=== PATIENT | female | born 1995 | race Caucasian/White ===

== ENCOUNTER → 2018-07-08 | Outpatient (REF) | payer BC | LOC: M SFHCCAPE 12:03 | DX: R30.0 Dysuria (principal) | CPT/HCPCS: 87086 ==

== ENCOUNTER → 2018-10-09 | Outpatient (REF) | payer BC ==
[2018-10-09 17:37] LABS: ALBUMIN 3.9 GM/DL (3.2-5.2); ALBUMIN/GLOBULIN RATIO 1.15 (1.00-1.93); ALKALINE PHOSPHATASE 76 U/L (45-117); ALT/SGPT 21 U/L (12-78); ANION GAP 11 MEQ/L (8-16); AST/SGOT 11 U/L (7-37); BILIRUBIN,TOTAL 0.3 MG/DL (0.2-1.0); BLOOD UREA NITROGEN 10 MG/DL (7-18); CALCIUM LEVEL 8.7 MG/DL (8.5-10.1); CARBON DIOXIDE LEVEL 24 MEQ/L (21-32); CHLORIDE LEVEL 104 MEQ/L (98-107); CHOLESTEROL LEVEL 187 MG/DL (<200); CHOLESTEROL RISK RATIO 4.155 (<5); CREATININE FOR GFR 0.56 MG/DL (0.55-1.30); GLOMERULAR FILTRATION RATE > 60.0 (>60); GLUCOSE, FASTING 78 MG/DL (70-100); HDL CHOLESTEROL 45 MG/DL (>40); IRON (FE) 87 UG/DL (50-170); LDL CHOLESTEROL 100 MG/DL (<100); NON-HDL-C 142 MG/DL; POTASSIUM SERUM 4.1 MEQ/L (3.5-5.1); SODIUM LEVEL 139 MEQ/L (136-145); THYROXINE (T4) 8.7 UG/DL (4.5-12.0); TOTAL PROTEIN 7.3 GM/DL (6.4-8.2); TRIGLYCERIDES LEVEL 212 MG/DL (<150)
[2018-10-09 18:54] LABS: BASO # 0.1 10^3/uL (0.0-0.2); BASO % 0.8 % (0.0-1.0); EOS # 0.1 10^3/uL (0.0-0.50); EOS % 1.8 % (0.0-3.0); HEMATOCRIT 42.3 % (36.0-47.0); HEMOGLOBIN 14.7 g/dl (12.0-15.5); IMMATURE GRANULOCYTE % 0.3 % (0-3.0); LYMPH # 2.5 10^3/uL (1.5-6.5); LYMPH % 33.2 % (24.0-44.0); MEAN CORPUSCULAR HEMOGLOBIN 29.3 pg (27.0-33.0); MEAN CORPUSCULAR HGB CONC 34.8 g/dl (32.0-36.5); MEAN CORPUSCULAR VOLUME 84.3 fl (80.0-96.0); MONO # 0.5 10^3/uL (0.0-0.8); MONO % 7.3 % (0.0-5.0); NEUTROPHILS # 4.2 10^3/uL (1.8-7.7); NEUTROPHILS % 56.6 % (36.0-66.0); PLATELET COUNT, AUTOMATED 228 10^3/uL (150-450); RED BLOOD COUNT 5.02 10^6/uL (4.00-5.40); RED CELL DISTRIBUTION WIDTH 12.6 % (11.5-14.5); WHITE BLOOD COUNT 7.4 10^3/uL (4.0-10.0)
[2018-10-12 00:07] LABS: VITAMIN D 1,25 DIHYDROXY 59.5 pg/mL (19.9-79.3)
== END ==
LOC: M SFHCCAPE 07:13
DX: E78.1 Pure hyperglyceridemia (principal); R63.5 Abnormal weight gain; R53.83 Other fatigue; Z13.21 Encounter for screening for nutritional disorder
CPT/HCPCS: 83540

== ENCOUNTER → 2019-02-25 | Outpatient (REF) | payer BC ==
[2019-02-25 18:21] LABS: ALBUMIN 4.1 GM/DL (3.2-5.2); ALT/SGPT 33 U/L (12-78); BILIRUBIN,TOTAL 0.4 MG/DL (0.2-1.0); BLOOD UREA NITROGEN 9 MG/DL (7-18); CARBON DIOXIDE LEVEL 27 MEQ/L (21-32); CHLORIDE LEVEL 103 MEQ/L (98-107); GLOMERULAR FILTRATION RATE > 60.0 (>60); GLUCOSE, FASTING 85 MG/DL (70-100); POTASSIUM SERUM 4.3 MEQ/L (3.5-5.1); SODIUM LEVEL 137 MEQ/L (136-145); TOTAL PROTEIN 7.8 GM/DL (6.4-8.2)
[2019-02-25 18:22] LABS: BASO # 0.1 10^3/uL (0.0-0.2); BASO % 0.9 % (0.0-1.0); EOS # 0.1 10^3/uL (0.0-0.50); EOS % 1.2 % (0.0-3.0); HEMATOCRIT 44.5 % (36.0-47.0); LYMPH # 2.6 10^3/uL (1.5-6.5); LYMPH % 26.5 % (24.0-44.0); MEAN CORPUSCULAR HEMOGLOBIN 28.1 pg (27.0-33.0); MEAN CORPUSCULAR HGB CONC 33.7 g/dl (32.0-36.5); MEAN CORPUSCULAR VOLUME 83.3 fl (80.0-96.0); MONO # 0.6 10^3/uL (0.0-0.8); MONO % 6.4 % (0.0-5.0); NEUTROPHILS # 6.4 10^3/uL (1.8-7.7); NEUTROPHILS % 64.7 % (36.0-66.0); PLATELET COUNT, AUTOMATED 260 10^3/uL (150-450); RED BLOOD COUNT 5.34 10^6/uL (4.00-5.40); WHITE BLOOD COUNT 9.9 10^3/uL (4.0-10.0)
== END ==
LOC: M LABDRWCV 17:09
PROVIDERS: ATTEND Psychiatry & Neurology Neurology
DX: Z79.899 Other long term (current) drug therapy (principal)

== ENCOUNTER → 2019-12-08 | Outpatient (REF) | payer BC | LOC: M SFHCCAPE 16:52 | PROVIDERS: ATTEND Physician Assistant | DX: H66.90 Otitis media, unspecified, unspecified ear (principal) ==

== ENCOUNTER → 2024-01-04 | Outpatient (CLI) | payer BC | LOC: M CLY 13:59 | PROVIDERS: ATTEND Family Medicine | DX: M41.86 Other forms of scoliosis, lumbar region (principal) ==

== ENCOUNTER → 2024-04-26 | Outpatient (CLI) | payer BC | LOC: M RAD 09:06 | PROVIDERS: ATTEND Family Medicine | DX: M41.9 Scoliosis, unspecified (principal); M79.651 Pain in right thigh ==

== ENCOUNTER → 2025-01-23 | Outpatient (CLI) | payer BC | LOC: M CLY 13:47 | PROVIDERS: ATTEND Family Medicine | DX: R05.3 Chronic cough (principal) ==

== ENCOUNTER → 2025-10-21 | Outpatient (REF) | payer BC ==
[2025-10-21 12:25] LABS: BASO # 0.1 10^3/uL (0.0-0.2); BASO % 1.2 % (0.0-1.0); EOS # 0.1 10^3/uL (0.0-0.5); EOS % 1.8 % (0.0-3.0); LYMPH # 2.2 10^3/uL (1.5-5.0); LYMPH % 29.6 % (24.0-44.0); MONO # 0.6 10^3/uL (0.0-0.8); MONO % 8.2 % (2.0-8.0); NEUTROPHILS # 4.3 10^3/uL (1.5-8.5); NEUTROPHILS % 58.9 % (36.0-66.0); PLATELET COUNT, AUTOMATED 220 10^3/uL (150-450)
[2025-10-21 12:51] LABS: ALT/SGPT 14 U/L (7.0-40); AST/SGOT 14 U/L (<34); CALCIUM LEVEL 9.0 MG/DL (8.5-10.1); CARBON DIOXIDE LEVEL 25 MMOL/L (20-31); CHLORIDE LEVEL 104 MMOL/L (98-107); CHOLESTEROL LEVEL 158 MG/DL (<200); CHOLESTEROL RISK RATIO 2.97 (<5); CREATININE FOR GFR 0.59 MG/DL (0.55-1.30); GLOMERULAR FILTRATION RATE > 90.0 (>60); LDL CHOLESTEROL 88.9 MG/DL (<100); NON-HDL-C 104.9 MG/DL; POTASSIUM SERUM 4.2 MMOL/L (3.5-5.1); SODIUM LEVEL 137 MMOL/L (136-145); TRIGLYCERIDES LEVEL 80 MG/DL (<150)
[2025-10-21 13:07] LABS: ESTIMATED AVERAGE GLUCOSE 80.0 MG/DL (60-110)
== END ==
LOC: M SFHCCLAY 06:57
PROVIDERS: ATTEND Family Medicine
DX: Z00.00 Encounter for general adult medical examination without abnormal findings (principal); E78.1 Pure hyperglyceridemia; Z83.3 Family history of diabetes mellitus